=== PATIENT | male | born 1950 | race African-American/Black ===

== ENCOUNTER 2018-05-10 01:25 | Observation (INO) | payer OTHER ==
[2018-05-10] MEDS ORDERED: MORPHINE SULFATE 10 MG/ML INJ IV ONE (02:26)
--- NOTE | 2018-05-10 02:28 | ER Document Report ---
ED Cardiac - General Chief Complaint: Chest Pain Stated Complaint: CHEST PAIN Time Seen by Provider: 05/10/18 02:09 Notes: Patient is a 67-year-old male who comes by EMS for chief complaint of chest pain. Patient states that his son today, he states that 2 hours after his son passed he started having chest pains in the middle of his chest. Pain radiated up to his neck. He denies nausea, shortness of breath, vomiting, or any other symptoms at this time. He states his pain is improved but is not resolved. He was given 324 mg of aspirin, nitroglycerin sublingual 2. Past medical history of OR with stent in 2014 at [place], also has a history of hypertension, hyperlipidemia, smoking. He is on Plavix. TRAVEL OUTSIDE OF THE [place] IN LAST 30 DAYS: No - Related Data Allergies/Adverse Reactions: No Known Allergies Allergy (Verified 03/08/16 08:53) Past Medical History - General Information source: Patient - Social History Smoking Status: Current Every Day Smoker Smoking Education Provided: Yes - <3 min Frequency of alcohol use: None Drug Abuse: None Lives with: Family Family History: Reviewed & Not Pertinent Patient has suicidal ideation: No Patient has homicidal ideation: No - Past Medical History Cardiac Medical History: Reports: Hx Coronary Artery Disease, Hx Hypercholesterolemia, Hx Hypertension Denies: Hx Heart Attack Pulmonary Medical History: Denies: Hx Asthma, Hx Bronchitis, Hx COPD, Hx Pneumonia Neurological Medical History: Denies: Hx Cerebrovascular Accident, Hx Seizures Renal/ Medical History: Denies: Hx Peritoneal Dialysis Musculoskeletal Medical History: Denies Hx Arthritis Past Surgical History: Reports: Hx Cardiac Catheterization - 2014 with stent - Immunizations Hx Diphtheria, Pertussis, Tetanus Vaccination: Yes - 2 years Review of Systems - Review of Systems Constitutional: No symptoms reported EENT: No symptoms reported Cardiovascular: See HPI Respiratory: No symptoms reported Gastrointestinal: No symptoms reported Genitourinary: No symptoms reported Male Genitourinary: No symptoms reported Musculoskeletal: No symptoms reported Skin: No symptoms reported Hematologic/Lymphatic: No symptoms reported Neurological/Psychological: See HPI Physical Exam - Vital signs Vitals: Resp BP Pulse Ox 12 112/69 100 05/10/18 01:56 05/10/18 01:56 05/10/18 01:56 - Notes Notes: GENERAL: Alert, interacts well. No acute distress. HEAD: Normocephalic, atraumatic. EYES: Pupils equal, round, and reactive to light. Extraocular movements intact. ENT: Oral mucosa moist, tongue midline. [Nares patent, no nasal septal hematoma , TM's intact.] NECK: Full range of motion. Supple. Trachea midline. LUNGS: Clear to auscultation bilaterally, no wheezes, rales, or rhonchi. No respiratory distress. HEART: Regular rate and rhythm. No murmur ABDOMEN: Soft, non-tender. Non-distended. Bowel sounds present in all 4 quadrants. EXTREMITIES: Moves all 4 extremities spontaneously. No edema, normal radial and dorsalis pedis pulses bilaterally. No cyanosis. BACK: no cervical, thoracic, lumbar midline tenderness. No saddle anesthesia, normal distal neurovascular exam. NEUROLOGICAL: Alert and oriented x3. Normal speech. [cranial nerves II through XII grossly intact]. PSYCH: Patient vaguely sad, still laughs occasionally SKIN: Warm, dry, normal turgor. No rashes or lesions noted. Course - Re-evaluation Re-evalutation: EKG showing sinus tachycardia at a rate of 106, no T-wave inversions or ST segment changes in consecutive leads, normal axis, no significant change from prior. Possible prolonged QT interval, however there is a lot of artifact. This will be repeated. After 2 mg of morphine patient's symptoms of pain resolved. CBC, chemistry nonspecific, troponin is indeterminate initially. Chest x-ray with no acute findings. On reevaluation discussed with patient. Patient has not had a stress test or cardiac catheterization since 2014 when he had his stent. He has multiple risk factors, age of 67. Heart score of 4. Discussed with patient, he is very agreeable with telemetry observation. Discussed with Dr. Joel. Patient will be admitted to telemetry observation. - Vital Signs Vital signs: Temp Pulse Resp BP Pulse Ox 97.6 F 13 136/77 H 100 05/10/18 02:00 05/10/18 07:01 05/10/18 07:01 05/10/18 07:01 - Laboratory Result Diagrams: 05/10/18 02:44 05/10/18 04:06 Laboratory results interpreted by me: 05/10/18 05/10/18 05/10/18 02:44 04:06 05:40 RBC 4.07 L MCV 99 H RDW 14.5 H Plt Count 136 L AST 90 H Creatine Kinase 48 L 42 L Discharge - Discharge Clinical Impression: Chest pain Qualifiers: Chest pain type: unspecified Qualified Code(s): R07.9 - Chest pain, unspecified Condition: Stable Disposition: ADMITTED OBSERVATION Admitting Provider: Hospitalist Unit Admitted: Telemetry
[2018-05-10 02:55] LABS: ABSOLUTE LYMPHOCYTES (AUTO) 1.5 10^3/uL (0.5-4.7); ABSOLUTE MONOCYTES (AUTO) 0.6 10^3/uL (0.1-1.4); ABSOLUTE NEUT (AUTO) 4.6 10^3/uL (1.7-8.2); BASOPHILS % (AUTO) 0.6 % (0-2); EOSINOPHILS % (AUTO) 0.7 % (0-6); HEMATOCRIT 40.4 % (37.9-51.0); HEMOGLOBIN 13.5 g/dL (13.5-17.0); LYMPHOCYTES % (AUTO) 21.5 % (13-45); MEAN CORPUSCULAR HEMOGLOBIN 33.2 pg (27.0-33.4); MEAN CORPUSCULAR HGB CONC 33.5 g/dL (32.0-36.0); MEAN CORPUSCULAR VOLUME 99 fl (80-97); MONOCYTES % (AUTO) 9.4 % (3-13); PLATELET COUNT 136 10^3/uL (150-450); RED BLOOD COUNT 4.07 10^6/uL (4.35-5.55); RED CELL DISTRIBUTION WIDTH 14.5 % (11.5-14.0); SEGMENTED NEUTROPHILS % (AUTO) 67.8 % (42-78); TOTAL CELLS COUNTED % (AUTO) 100 %; WHITE BLOOD COUNT 6.8 10^3/uL (4.0-10.5)
--- NOTE | 2018-05-10 03:36 | RADIOLOGY REPORT (SQ) ---
EXAM DESCRIPTION: XR CHEST 1 VIEW COMPLETED DATE/TME: 05/10/2018 02:25 CLINICAL HISTORY: 67 years Male, chest pain COMPARISON: None. NUMBER OF VIEWS/TECHNIQUE: 1/AP FINDINGS: Increased lung volume, clear parenchyma, normal cardiac silhouette, and intact bony thorax. IMPRESSION: No acute cardiopulmonary findings.
[2018-05-10 03:43] LABS: CREATINE KINASE MB 0.39 ng/mL (<4.55)
[2018-05-10 03:45] LABS: TROPONIN I 0.026 ng/mL
[2018-05-10 04:36] LABS: ALANINE AMINOTRANSFERASE 67 U/L (21-72); ALBUMIN 4.4 g/dL (3.5-5.0); ALKALINE PHOSPHATASE 45 U/L (38-126); ANION GAP 17 (5-19); ASPARTATE AMINO TRANSFERASE 90 U/L (17-59); BILIRUBIN,DIRECT 0.3 mg/dL (0.0-0.4); BILIRUBIN,TOTAL 0.4 mg/dL (0.2-1.3); BLOOD UREA NITROGEN 12 mg/dL (7-20); CALCIUM 9.8 mg/dL (8.4-10.2); CARBON DIOXIDE 22 mmol/L (22-30); CHLORIDE 104 mmol/L (98-107); CREATINE KINASE 48 U/L (55-170); GLUCOSE 75 mg/dL (75-110); POTASSIUM 4.4 mmol/L (3.6-5.0); TOTAL PROTEIN 7.7 g/dL (6.3-8.2)
[2018-05-10] MEDS ORDERED: NORMAL SALINE 1000 ML 1,000 ML IV PRN (06:04)
--- NOTE | 2018-05-10 06:46 | PDOC H&P ---
History of Present Illness Admission Date/PCP: 05/10/18 06:15 CATRACH[place]O MARTINI, [facility] provider Patient complains of: Chest discomfort History of Present Illness: MAREN AGUAYO is a 67 year old man who has known coronary artery disease and who has under gone cardiac stenting in the past. He gets most of his care at the [facility]. He reports that in the last 24 hours his son, age 32 with some type of developmental delay, has . Soon after his son the patient started to develop chest pain. He states the pain was like his heart pain in the past. Pain started in the right neck and radiated down to the right chest and then over to the left chest. It is an aching. It was 6 out of 7 at worst and with nitroglycerin and morphine the patient became chest pain-free in the ER. He has no cough no fever no sputum production. No nausea vomiting. No diaphoresis. He is being admitted to the hospitalist service for evaluation and treatment. Past Medical History Cardiac Medical History: Reports: Coronary Artery Disease, Hypertension Denies: Myocardial Infarction Pulmonary Medical History: Denies: Asthma, Bronchitis, Chronic Obstructive Pulmonary Disease (COPD), Pneumonia EENT Medical History: Denies: Eyes Neurological Medical History: Denies: Seizures Endocrine Medical History: Denies: Diabetes Mellitus Type 2 Renal/ Medical History: Denies: Chronic Kidney Disease Malignancy Medical History: Denies: None GI Medical History: Denies: Gastroesophageal Reflux Disease Musculoskeltal Medical History: Reports: Arthritis Psychiatric Medical History: Reports: Tobacco Dependency Traumatic Medical History: Reports: None Hematology: Denies: Anemia Infectious Medical History: Reports: Other Infectious History Note: Unknown Past Surgical History Past Surgical History: Reports: Cardiac Catheterization, Coronary Stent - Social History Information Source: Patient Lives with: Family Smoking Status: Current Every Day Smoker Cigarettes Packs Per Day: 1 - Since 19 years old Number of Years Smokin Frequency of Alcohol Use: Heavy - A 12 pack per week Hx Recreational Drug Use: No Drugs: None Hx Prescription Drug Abuse: No Past Social History Note: Patient lives locally with his . His 32-year-old son has , he did not elaborate other than to say that the son had some kind of developmental delay. Patient has been unable to keep a job secondary to his "low energy". He gets most of his care at the [facility]. - Advance Directive Resuscitation Status: Full Code Surrogate healthcare decision maker:: His Luke Aguayo. Family History Family History: Reviewed & Not Pertinent Parental Family History Reviewed: Yes Children Family History Reviewed: Yes Sibling(s) Family History Reviewed.: Yes Medication/Allergy Home Medications: Omeprazole [Prilosec] 20 mg PO BID #60 capsule. 01/18/16 Sucralfate [Carafate 1 gm Tablet] 1 gm PO ACHS #120 tablet 01/18/16 Allergies/Adverse Reactions: No Known Allergies Allergy (Verified 03/08/16 08:53) Review of Systems Constitutional: PRESENT: weakness. ABSENT: chills, fever(s), headache(s) Eyes: ABSENT: visual disturbances Ears: ABSENT: hearing changes Nose, Mouth, and Throat: ABSENT: sore throat Cardiovascular: PRESENT: chest pain. ABSENT: dyspnea on exertion, edema, orthropnea, palpitations Respiratory: ABSENT: cough, dyspnea, sputum Gastrointestinal: PRESENT: constipation. ABSENT: heartburn, nausea, vomiting Genitourinary: ABSENT: dysuria Musculoskeletal: ABSENT: deformity Neurological: PRESENT: dizziness. ABSENT: frequent falls, memory loss, syncope Psychiatric: ABSENT: anxiety, depression Endocrine: ABSENT: cold intolerance, heat intolerance Hematologic/Lymphatic: ABSENT: easy bleeding, easy bruising Allergic/Immunologic: ABSENT: seasonal rhinorrhea Physical Exam Vital Signs: Temp Pulse Resp BP Pulse Ox 97.6 F 98 05/10/18 02:00 05/10/18 02:25 General appearance: PRESENT: no acute distress, thin Head exam: PRESENT: atraumatic, normocephalic Eye exam: PRESENT: EOMI. ABSENT: conjunctival injection, scleral icterus Ear exam: PRESENT: normal external ear exam Mouth exam: PRESENT: moist, neck supple, tongue midline Respiratory exam: PRESENT: clear to auscultation dominic, unlabored. ABSENT: rales , rhonchi, wheezes Cardiovascular exam: PRESENT: RRR. ABSENT: systolic murmur Pulses: PRESENT: normal radial pulses, normal dorsalis pedis pul GI/Abdominal exam: PRESENT: normal bowel sounds, soft. ABSENT: distended, firm , tenderness Rectal exam: PRESENT: deferred Gentrourinary exam: ABSENT: indwelling catheter Extremities exam: ABSENT: joint swelling, pedal edema Musculoskeletal exam: PRESENT: ambulatory, normal inspection Neurological exam: PRESENT: alert, awake, oriented to person, oriented to place , oriented to situation, CN II-XII grossly intact. ABSENT: aphasic Psychiatric exam: PRESENT: appropriate affect. ABSENT: anxious Skin exam: PRESENT: dry, intact, warm Results Impressions: Chest X-Ray 05/10/18 02:25 IMPRESSION: No acute cardiopulmonary findings. Assessment & Plan - Diagnosis (1) Chest pain Is this a current diagnosis for this admission?: Yes Plan: Patient has had cardiac chest pain in the past and has a cardiac stent placed in 2014. He states that this pain was like his angina. He is now chest pain- free after nitroglycerin and morphine in the ER. He is admitted on telemetry. I will start his cardiac meds which include Lopressor 50 mg twice daily, aspirin 81 mg daily, as needed nitroglycerin, Lipitor 40 mg at bedtime, Plavix 75 mg daily. I have consulted our purchasing officer to evaluate patient for stress test versus cardiac cath. (2) Coronary artery disease Is this a current diagnosis for this admission?: Yes Plan: Please see above. Cardiac meds will be restarted. (3) Dizziness Is this a current diagnosis for this admission?: Yes Plan: Patient states he got up a little while after having morphine and felt dizzy. That is resolved now. Asked him to ask for help with getting out of bed. - Time Time Spent: 50 to 70 Minutes - Inpatient Certification Based on my medical assessment, after consideration of the patient's comorbidities, presenting symptoms, or acuity I expect that the services needed warrant INPATIENT care.: No I certify that my determination is in accordance with my understanding of Medicare's requirements for reasonable and necessary INPATIENT services [42 CFR 412.3e].: No
[2018-05-10 06:56] LABS: TROPONIN I < 0.012 ng/mL
[2018-05-10] MEDS ORDERED: MORPHINE SULFATE 10 MG/ML INJ IV PRN (07:19)
[2018-05-10 07:20] LABS: CHOLESTEROL 124.74 mg/dL (0-200); TRIGLYCERIDES 120 mg/dL (<150)
[2018-05-10] MEDS ORDERED: NITROGLYCERIN 0.4 MG/TAB 25 TAB/BOTTLE SL PRN (07:20)
[2018-05-10] MEDS ORDERED: LANSOPRAZOLE 30 MG TAB.RAP.DR PO ONE (07:22)
[2018-05-10 07:36] LABS: DIRECT LDL < 30 mg/dL (<100)
[2018-05-10] MEDS ORDERED: ASPIRIN 81 MG TABLET, CHEWABLE PO SCH (10:00)
[2018-05-10] MEDS ORDERED: CLOPIDOGREL BISULFATE 75 MG TABLET PO SCH (10:00)
--- NOTE | 2018-05-10 10:00 | EKG REPORT ---
SEVERITY:- ABNORMAL ECG - SINUS RHYTHM BORDERLINE R WAVE PROGRESSION, ANTERIOR LEADS PROLONGED QT INTERVAL : Confirmed by: Melodie Crow 10-May-2018 10:00:05
--- NOTE | 2018-05-10 10:00 | EKG REPORT ---
SEVERITY:- ABNORMAL ECG - SINUS RHYTHM ABNRM R PROG, CONSIDER ASMI OR LEAD PLACEMENT : Confirmed by: Melodie Crow 10-May-2018 09:59:10
[2018-05-10 12:32] VITALS: BP 141/71
[2018-05-10] MEDS ORDERED: HEPARIN SOD (PORCINE) 5,000 UNIT/ML 1 ML SYRINGE SUBCUT SCH (14:00)
[2018-05-10 15:04] LABS: CREATINE KINASE MB 0.47 ng/mL (<4.55)
[2018-05-10 15:11] LABS: TROPONIN I < 0.012 ng/mL
[2018-05-10] MEDS ORDERED: ATORVASTATIN CALCIUM 40 MG TABLET PO SCH (22:00)
--- NOTE | 2018-05-11 10:39 | CONSULTATION REPORT E ---
Consultation Report NAME: MAREN CHAN : 1950 AGE: 67Y DATE: 05/10/2018 407 A TO: USZANNE BOND M.D. FROM: TRAMAINE RAY M.D. Requesting Physician Patient seen at 11:00 a.m. Sixty minutes spent on the patient, more than 50% of that time was spent on patient care. His medications have been reviewed also. REASON FOR CONSULTATION: Patient with coronary artery disease, history of stent with chest stent. HISTORY: Patient is a 67-year-old -[place] male who follows up in the [facility] for a history of hypertension, history of coronary artery disease with multiple stents, which he claims to be the main artery of the heart, probably the left anterior descending artery and hyperlipidemia and GERD. States that his son recently and after that the patient started having severe heartburn lasting for about 15 to 20 minutes which sharpens a bit, and some diaphoresis. There are no palpitations or dizziness or syncope. The patient states that he has not had this pain in a long time, but he says it is reminiscent of the pain that led to his having stents placed in the coronary arteries. He states that he has not had a [place] but had several stents in probably the left anterior descending artery since he claims the stents are placed in the main artery of the heart. He does not have a stent card. Records are not available. He states he has not had any angina symptoms but the patient is scheduled in the near future [facility] He denies any PND, orthopnea, or leg edema. He has no palpitations, syncope, or near syncope. PAST MEDICAL HISTORY: Positive for coronary artery disease. He also has a mild history of stents. History of hypertension. No history of diabetes mellitus, no history of thyroid disease. History of GI depressant. No history of diabetes mellitus or thyroid disease. No history of GI bleed. No history of TIA or CVA. No history of hypothyroidism or diabetes mellitus. No history of chronic kidney disease. PAST SURGICAL HISTORY: Positive for cardiac catheterization. FAMILY HISTORY: Positive for hypertension, negative for coronary artery disease. SOCIAL HISTORY: The patient is a smoker. There is no severe ETOH abuse. ALLERGIES: The patient has no known allergies. CODE STATUS: The patient is a FULL CODE. His is the healthcare decision maker. MEDICATIONS: 1. Lipitor 80 mg q. bedtime. 2. Nitroglycerine 0.4 mg sublingually q. 5 minutes p.r.n. 3. Enteric coated aspirin 81 mg daily. 4. BuSpar 10 mg p.o. daily. 5. Plavix 75 mg p.o. daily. 6. Metoprolol 50 mg p.o. q. 12 hours. 7. *------* 20 mg daily. REVIEW OF SYSTEMS: CONSTITUTIONAL: Denies any fever, chills or rigors. Denies any generalized fatigue and weakness. HEAD: Denies any headaches or head injury or dizziness. EYES: No history of diplopia or amblyopia. No history of amaurosis fugax. EARS: No hearing loss, no tinnitus. No significant ear infections. NOSE: No history of hayfever. No history of nasal polyps. MOUTH: No history of altered taste sensation. No ulcers in the mouth. THROAT: No odynophagia or dysphagia. No recurrent sore throats. SKIN: No history of psoriasis, no history of pruritus. No rash or discoloration of the skin. No history of eczema. NECK: No neck pain. No swelling in the neck. No lymphadenopathy. No goiter. LUNGS: The patient is a smoker. Has physical examination features of COPD but the patient does not use any inhalers. He denies any wheezing, cough, or sputum production. He denies any shortness of breath or recurrent bouts of bronchitis or pneumonia. There are no symptoms of upper or lower respiratory tract infections. He denies history of sleep apnea. He has no history of pleuritic chest pain. No evidence of hemoptysis. CARDIAC: History of coronary artery disease. He has had no history of [place]. His symptoms are chest pains when he had the stent placed. History of hypertension. No history of heart failure. No history of cardiac arrhythmia. No history of leg edema. No history of PND, orthopnea, or leg edema. No syncope. No history of rheumatic fever, no history of coronary heart disease. ENDOCRINE: No history of diabetes mellitus. No history of thyroid disease. No history of polydipsia, polyuria. No history of heat or cold intolerance. GASTROINTESTINAL: History of GI depression, no history of GI bleed. No history of peptic ulcer disease. No history of fatty food intolerance, no history of hepatitis, no history of cirrhosis, no history of GI bleed. No history of abdominal pain, no history of altered bowel movements. MUSCULOSKELETAL: He does have arthritis, but no collagen vascular disease. RENAL: No history of chronic kidney disease. No symptoms of enlarged prostate, no symptoms of UTI. No history of hematuria, pyuria, or dysuria. METABOLIC: History of hyperlipidemia present. No history of gout. No history of obesity. CENTRAL NERVOUS SYSTEM: Past history of TIA or CVA. No history of headaches, migraines, or seizures. No history of gait imbalance. PSYCHIATRIC: No history of depression but the patient does seem to have some anxiety and he is on BuSpar for that. No history or suicidal ideation and no evidence of homicidal ideation. HEMATOLOGICAL: No history of bleeding diathesis. No history of clotting disorders. No history of anemia. VASCULAR: No history of cough or buttock claudication. No history of DVT. PHYSICAL EXAMINATION: GENERAL: The patient is fair built, but well-nourished in no acute distress. VITAL SIGNS: He is afebrile with a temperature of 98.2 degrees Fahrenheit, pulse is 81 beats per minute, blood pressure 147/71, respirations are 18 per minute, O2 saturations are 100% on room air. HEAD: Atraumatic, normocephalic EYES: Pupils are equal, round, regular, reactive to light and accommodation. Extraocular movements are normal. There is no conjunctival pallor. There is no scleral icterus. EARS: Tympanic membranes are intact. External auditory canals are clear. NOSE: There is no deviated nasal septum. There is no inflammation of the nasal mucous membrane. MOUTH: Mucous membranes of the mouth are moist. Tongue is moist. There are no ulcers. There is no bleeding from the gums. THROAT: There is no redness of the oropharynx. There are no exudates. SKIN: There are no skin rashes. There are no skin lesions. There is no petechia or ecchymosis. NECK: Neck is supple with no JVD. Carotids are equal. There is no bruit. There is no lymphadenopathy. There is no goiter. Trachea is central. LUNGS: Diminished air entry, prolonged expiration on auscultation. No rhonchi or wheezing. On auscultation, there is . There is no chest wall tenderness. HEART: S1 and S2 are heard. There is no S3 gallop. There is no S4 gallop. There is systolic murmur left sternal border of the apex. There is no rub. ABDOMEN: Soft, nontender. There is no hepatosplenomegaly. Bowel sounds are well heard. There is no tenderness, masses. EXTREMITIES: Femorals are diminished. There are no femoral bruits. Leg pulses are diminished. There is no pedal edema. There is no DVT or cellulitis. There is no calf tenderness. There is no cyanosis or clubbing. CENTRAL NERVOUS SYSTEM: The patient is conscious, awake, alert, oriented x3 with no focal deficit. PSYCHIATRIC: At present, the patient's judgment and insight are intact. His affect is normal. DIAGNOSTIC STUDIES: The patient's EKG serially shows sinus rhythm with poor R wave progression, most likely secondary to lead placement, doubt old . Prolonged QT interval. The second and the first EKG do no show any acute ischemia or [place]. The patient's chest x-ray shows no acute cardiopulmonary findings. The chest x-ray is comparable to COPD. The patient's white count is 6,800, hemoglobin is 13.5, hematocrit is 40.4, and the platelet count is 136,000. The patient's cardiac enzymes are negative x3. The patient's triglycerides are 120, his LDL cholesterol is less than 30, his cortisol is very good at 87. His CPK-MB have been negative also. The patient's sodium is 143.0, potassium 4.4, chloride is 104, CO2 is 22. The patient's BUN is 12, creatinine is 0.74. GFR is greater than 60, glucose is 75, calcium is 9.8. His liver function test show a slightly elevated AST of 90 and rosemary-phos and the rest and ALT and the rest of the liver functions are normal. IMPRESSION: 1. CHEST PAIN. NO EVIDENCE OF ACUTE ISCHEMIA/KY BY EKG AND BY CARDIAC ENZYMES. 2. NOTE HISTORY OF CORONARY ARTERY DISEASE WITH STENT PROBABLY IN THE LAD. NOTE THAT THE PATIENT HAS BEEN SCHEDULED FOR A LEXISCAN AND [facility]. THE PATIENT WANTS TO HAVE IT DONE THERE. HE DOES NOT WANT US TO DO A STRESS TEST HERE, HE IS AWARE OF THE RISKS OF NOT UNDERGOING STRESS TEST. 3. HYPERTENSION. 4. HYPERLIPIDEMIA. 5. GASTROESOPHAGEAL REFLUX DISEASE. 6. HISTORY OF TOBACCO ABUSE. 7. 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 Note: I discussed with the hospitalist and discussed with the patient. Medical decision making is of fair complexity. Will discharge the patient. The patient will follow up with [facility]. DICTATING PHYSICIAN: SUZANNE BOND M.D. [id number] PHY#: [id number] ID: [id number] JOB#: [id number] ACCT: [id number] cc:SUZANNE BOND M.D. >
--- NOTE | 2018-05-12 11:57 | PDOC DISCHARGE SUMMARY ---
General - Admit/Disc Date/PCP Admission Date/Primary Care Provider: 05/10/18 06:15 CATRACHITO MARTINI Discharge Date: 05/10/18 - Discharge Diagnosis (1) Chest pain Is this a current diagnosis for this admission?: Yes (2) Grief at loss of child Is this a current diagnosis for this admission?: Yes (3) Hyperlipemia Is this a current diagnosis for this admission?: Yes (4) HTN (hypertension) Is this a current diagnosis for this admission?: Yes (5) GERD (gastroesophageal reflux disease) Is this a current diagnosis for this admission?: Yes (6) Coronary artery disease Is this a current diagnosis for this admission?: Yes - Additional Information Resuscitation Status: Full Code Discharge Diet: Cardiac Discharge Activity: Activity As Tolerated, Balance Activity w/Rest Prescriptions: Buspirone HCl [Buspar 10 mg Tablet] 10 mg PO BIDP PRN #20 tab PRN Reason: Anxiety, Difficulty sleeping Home Medications: Aspirin [Ecotrin 81 mg EC Tablet] 81 mg PO DAILY 05/10/18 Atorvastatin Calcium [Lipitor 80 mg Tablet] 80 mg PO QHS 05/10/18 Buspirone HCl [Buspar 10 mg Tablet] 10 mg PO BIDP PRN #20 tab 05/10/18 Clopidogrel Bisulfate [Plavix 75 mg Tablet] 75 mg PO DAILY 05/10/18 Metoprolol Tartrate [Lopressor 50 mg Tablet] 50 mg PO Q12 05/10/18 Nitroglycerin [Nitrostat] 0.4 mg SL Q5MP PRN 05/10/18 Omeprazole 20 mg PO DAILY 05/10/18 History of Present Illness History of Present Illness: MAREN CHAN is a 67 year old man who has known coronary artery disease and who has under gone cardiac stenting in the past. He gets most of his care at [facility]. He reports that in the last 24 hours his son, age 32 with some type of developmental delay, has . Soon after his son the patient started to develop chest pain. He states the pain was like his heart pain in the past. Pain started in the right neck and radiated down to the right chest and then over to the left chest. It is an aching. It was 6 out of 7 at worst and with nitroglycerin and morphine the patient became chest pain-free in the ER. He has no cough no fever no sputum production. No nausea vomiting. No diaphoresis. He is being admitted to the hospitalist service for evaluation and treatment. Hospital Course Hospital Course: The patient was admitted for chest pain rule out. He was observed on continuous cardiac telemetry with no notable arrhythmias. EKG demonstrated NSR without acute changes. Chest xrray was benign. Serial troponins x 3 were negative. Lipid panel was acceptable. Remaining laboratory evaluation was unremarkable. The patient was evaluated by in-house cardiology who cleared the patient for discharge to follow up with his scheduled cardiology appointment at the [facility] in 2 weeks. The patient reported that he is already scheduled to have a nuclear stress completed at that appointment and would prefer to have the testing done at that time. The patient is discharged to home with recommendations to follow up as scheduled and to return to the Emergency Department for any concerning symptoms. He is advised to continue his prerviously prescribed ASA, Plavix, and Statin therapy. He is provided a short prescription for Buspar to use twice daily as needed for stress/anxiety related to his acute grief reaction to recent of immediate family member. He is discharged in stable condition, pain free, and maintaining oxygen saturations on room air. Physical Exam Vital Signs: Temp Pulse Resp BP Pulse Ox 98.2 F 77 18 141/71 H 100 05/10/18 14:58 05/10/18 14:58 05/10/18 14:58 05/10/18 14:58 05/10/18 14:58 Intake & Output 05/11/18 05/12/18 05/13/18 06:59 06:59 06:59 Intake Total 480 Balance 480 Weight 61.2 kg General appearance: PRESENT: no acute distress, thin, well-developed Head exam: PRESENT: atraumatic, normocephalic Eye exam: PRESENT: conjunctiva pink, EOMI, PERRLA. ABSENT: scleral icterus Ear exam: PRESENT: normal external ear exam Mouth exam: PRESENT: moist, tongue midline Neck exam: ABSENT: carotid bruit, JVD, lymphadenopathy, thyromegaly Respiratory exam: PRESENT: clear to auscultation dominic. ABSENT: rales, rhonchi, wheezes Cardiovascular exam: PRESENT: RRR. ABSENT: diastolic murmur, rubs, systolic murmur Pulses: PRESENT: normal dorsalis pedis pul Vascular exam: PRESENT: normal capillary refill GI/Abdominal exam: PRESENT: normal bowel sounds, soft. ABSENT: distended, guarding, mass, organolmegaly, rebound, tenderness Rectal exam: PRESENT: deferred Extremities exam: PRESENT: full ROM. ABSENT: calf tenderness, clubbing, pedal edema Neurological exam: PRESENT: alert, awake, oriented to person, oriented to place , oriented to time, oriented to situation, CN II-XII grossly intact. ABSENT: motor sensory deficit Psychiatric exam: PRESENT: appropriate affect, normal mood. ABSENT: homicidal ideation, suicidal ideation Skin exam: PRESENT: dry, intact, warm. ABSENT: cyanosis, rash Results Laboratory Results: 05/10/18 05/10/18 14:11 14:11 Creatine Kinase 44 L CK-MB (CK-2) 0.47 Troponin I < 0.012 Impressions: Chest X-Ray 05/10/18 02:25 IMPRESSION: No acute cardiopulmonary findings. Qualifiers - * PATIENT BEING DISCHARGED WITH ANY OF THE FOLLOWING DIAGNOSIS: No Plan Discharge Plan: Discharge to home with self care. Follow up with primary care provider within 1 week. Follow up with established ore bridge operator as scheduled. Time Spent: Less than 30 Minutes
== END 2018-05-10 15:30 | disposition home or self-care (01) ==
LOC: ER 01:25 → EH 06:15 → 4N 14:03
PROVIDERS: ADMIT Internal Medicine; ATTEND Internal Medicine
DX: R07.9 Chest pain, unspecified (principal); F43.21 Adjustment disorder with depressed mood; E78.5 Hyperlipidemia, unspecified; I10 Essential (primary) hypertension; K21.9 Gastro-esophageal reflux disease without esophagitis; I25.10 Atherosclerotic heart disease of native coronary artery without angina pectoris; R61 Generalized hyperhidrosis; F17.210 Nicotine dependence, cigarettes, uncomplicated; M19.90 Unspecified osteoarthritis, unspecified site; R01.1 Cardiac murmur, unspecified; R53.1 Weakness; K59.00 Constipation, unspecified; R42 Dizziness and giddiness; R00.0 Tachycardia, unspecified; Z95.5 Presence of coronary angioplasty implant and graft; Z79.02 Long term (current) use of antithrombotics/antiplatelets; Z79.899 Other long term (current) drug therapy; Z79.82 Long term (current) use of aspirin; Z82.49 Family history of ischemic heart disease and other diseases of the circulatory system
CPT/HCPCS: 93005; 99285; 96374; 36415; 82553; 82550; 85025; 80053; 84484; 80061; 71045; 93010; G0378 ×2; J2270

== ENCOUNTER → 2020-10-09 | Outpatient (CLI) | payer OTHER ==
[2020-10-09 10:35] LABS: ABSOLUTE LYMPHOCYTES (AUTO) 1.3 10^3/uL (0.5-4.7); ABSOLUTE MONOCYTES (AUTO) 0.6 10^3/uL (0.1-1.4); ABSOLUTE NEUT (AUTO) 2.2 10^3/uL (1.7-8.2); BASOPHILS % (AUTO) 0.9 % (0-2); EOSINOPHILS % (AUTO) 0.9 % (0-6); HEMATOCRIT 41.7 % (37.9-51.0); LYMPHOCYTES % (AUTO) 30.8 % (13-45); MEAN CORPUSCULAR HEMOGLOBIN 33.8 pg (27.0-33.4); MEAN CORPUSCULAR HGB CONC 33.6 g/dL (32.0-36.0); MEAN CORPUSCULAR VOLUME 101 fl (80-97); MONOCYTES % (AUTO) 14.5 % (3-13); PLATELET COUNT 114 10^3/uL (150-450); RED BLOOD COUNT 4.15 10^6/uL (4.35-5.55); RED CELL DISTRIBUTION WIDTH 13.6 % (11.5-14.0); SEGMENTED NEUTROPHILS % (AUTO) 52.9 % (42-78); TOTAL CELLS COUNTED % (AUTO) 100 %; WHITE BLOOD COUNT 4.1 10^3/uL (4.0-10.5)
[2020-10-09 10:41] LABS: INTERNATIONAL RATION (INR) 0.89; PROTHROMBIN TIME 12.2 SEC (11.4-15.4)
[2020-10-09 10:58] LABS: ANION GAP 9 (5-19); BLOOD UREA NITROGEN 7 mg/dL (7-20); CARBON DIOXIDE 27 mmol/L (22-30); CHLORIDE 101 mmol/L (98-107); GLUCOSE 94 mg/dL (75-110); POTASSIUM 4.3 mmol/L (3.6-5.0)
== END ==
LOC: LAB 10:04
PROVIDERS: ATTEND Internal Medicine Interventional Cardiology
DX: I25.10 Atherosclerotic heart disease of native coronary artery without angina pectoris (principal)
CPT/HCPCS: 36415; 80048; 83735; 85025; 85610

== ENCOUNTER → 2020-10-16 | Outpatient (CLI) | payer OTHER ==
[2020-10-16 10:42] LABS: ABSOLUTE LYMPHOCYTES (AUTO) 1.3 10^3/uL (0.5-4.7); ABSOLUTE MONOCYTES (AUTO) 0.6 10^3/uL (0.1-1.4); ABSOLUTE NEUT (AUTO) 2.8 10^3/uL (1.7-8.2); BASOPHILS % (AUTO) 0.9 % (0-2); EOSINOPHILS % (AUTO) 0.3 % (0-6); HEMATOCRIT 42.4 % (37.9-51.0); LYMPHOCYTES % (AUTO) 27.7 % (13-45); MEAN CORPUSCULAR HEMOGLOBIN 33.3 pg (27.0-33.4); MEAN CORPUSCULAR HGB CONC 33.1 g/dL (32.0-36.0); MEAN CORPUSCULAR VOLUME 101 fl (80-97); MONOCYTES % (AUTO) 13.5 % (3-13); PLATELET COUNT 130 10^3/uL (150-450); RED BLOOD COUNT 4.22 10^6/uL (4.35-5.55); RED CELL DISTRIBUTION WIDTH 13.5 % (11.5-14.0); SEGMENTED NEUTROPHILS % (AUTO) 57.6 % (42-78); TOTAL CELLS COUNTED % (AUTO) 100 %; WHITE BLOOD COUNT 4.8 10^3/uL (4.0-10.5)
[2020-10-16 11:06] LABS: INTERNATIONAL RATION (INR) 0.94; PROTHROMBIN TIME 12.8 SEC (11.4-15.4)
[2020-10-16 11:08] LABS: ANION GAP 9 (5-19); BLOOD UREA NITROGEN 8 mg/dL (7-20); CALCIUM 9.8 mg/dL (8.4-10.2); CARBON DIOXIDE 27 mmol/L (22-30); CHLORIDE 101 mmol/L (98-107); GLUCOSE 82 mg/dL (75-110); POTASSIUM 4.1 mmol/L (3.6-5.0)
== END ==
LOC: LAB 10:14
PROVIDERS: ATTEND Internal Medicine Interventional Cardiology
DX: I25.10 Atherosclerotic heart disease of native coronary artery without angina pectoris (principal)
CPT/HCPCS: 36415; 80048; 83735; 85025; 85610